=== PATIENT | male | born 1995 | race African-American/Black ===

== ENCOUNTER 2019-06-14 11:25 | Emergency (ER) | payer SELFPAY ==
[~2019-06-14 11:25] MED LIST: EPINEPHrine SYR 0.1MG/ML* SYRINGE ONE
[2019-06-14 11:28] VITALS: BP 0/0
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
== END 2019-06-14 15:00 | disposition expired ==
LOC: EDBD → ED 11:25 → EDBD 11:25 → ED 15:00
DX: I46.9 Cardiac arrest, cause unspecified (principal)
CPT/HCPCS: 32551; 49082; 99285; J0171